=== PATIENT | male | born 1955 | race Two or more races ===

== ENCOUNTER → 2020-02-05 | Outpatient (CLI) | payer MEDICARE | END | disposition home or self-care (01) | LOC: LAB 09:16 | DX: I74.5 Embolism and thrombosis of iliac artery (principal) | CPT/HCPCS: 36415; 82565; 84520 ==

== ENCOUNTER → 2020-10-13 | Outpatient (CLI) | payer MEDICARE | END | disposition home or self-care (01) | LOC: Rad HDHVI 08:09 | PROVIDERS: ATTEND Internal Medicine | DX: I08.3 Combined rheumatic disorders of mitral, aortic and tricuspid valves (principal); E78.5 Hyperlipidemia, unspecified; R06.02 Shortness of breath | CPT/HCPCS: 93306 ==

== ENCOUNTER → 2020-11-12 | Outpatient (CLI) | payer MEDICARE ==
[~2020-11-12] VITALS: Ht 175.3 cm; Wt 90.7 kg
[~2020-11-12] MED LIST: ADENOSINE 76 MG in GIVE UN-DILUTED 0 ML IV ONE; ADENOSINE 90 MG/30 ML INJ IV ONE
== END | disposition home or self-care (01) ==
LOC: Rad HDHVI 08:21
PROVIDERS: ATTEND Internal Medicine
DX: I25.10 Atherosclerotic heart disease of native coronary artery without angina pectoris (principal); I10 Essential (primary) hypertension; E78.5 Hyperlipidemia, unspecified; Z95.1 Presence of aortocoronary bypass graft; Z82.49 Family history of ischemic heart disease and other diseases of the circulatory system
CPT/HCPCS: 78452; 93005; 96374; 96375; A9500; J0153

== ENCOUNTER 2020-11-20 10:52 | Emergency (ER) | payer MEDICARE ==
[~2020-11-20] VITALS: Ht 175.3 cm; Wt 86.2 kg
[2020-11-20 10:59] VITALS: BP 113/61
== END 2020-11-20 12:17 | disposition left against medical advice (07) ==
LOC: ER 10:52
DX: R06.02 Shortness of breath (principal); I11.0 Hypertensive heart disease with heart failure; I50.9 Heart failure, unspecified; E78.5 Hyperlipidemia, unspecified; F17.210 Nicotine dependence, cigarettes, uncomplicated; F12.10 Cannabis abuse, uncomplicated
CPT/HCPCS: 93005

== ENCOUNTER → 2020-12-05 | Outpatient (CLI) | payer MEDICARE, MEDICAID ==
[~2020-12-05] VITALS: Ht 175.3 cm; Wt 89.4 kg
[~2020-12-05] MED LIST changes: -ADENOSINE 76 MG in GIVE UN-DILUTED 0 ML IV ONE; -ADENOSINE 90 MG/30 ML INJ IV ONE; +AML5T PO; +ASPI-231 PO; +ATOR80TA PO; +CITA10TA70 PO; +CLOP75TA28 PO; +EZET10TA22 PO; +FINA5TAB4 PO; +HYDR-4798 PO; +LISI40TA11 PO; +METO25TA93 PO; +TAM04C PO
[2020-12-05 09:15] VITALS: BP 142/76
[2020-12-05 09:29] VITALS: BP 146/79
[2020-12-05 12:05] LABS: Basophils # (auto) 0 10 ^3/uL (0-0.2); Basophils % (auto) 0.7 % (0.0-2.0); Eosinophils # (auto) 0.1 10 ^3/uL (0-0.8); Eosinophils % (auto) 2.4 % (0.0-7.0); Hematocrit 30.9 % (41.0-53.0); Hemoglobin 10.1 g/dL (13.5-17.5); Lymphocytes # (auto) 0.9 10 ^3/uL (0.4-5.4); Lymphocytes % (auto) 19.6 % (10.0-50.0); Mean Corpuscular Hemoglobin 27.3 pg (28.0-32.0); Mean Corpuscular Hgb Conc. 32.6 g/dL (32.0-36.0); Mean Corpuscular Volume 83.9 fL (80.0-100.0); Monocytes # (auto) 0.6 10 ^3/uL (0-1.3); Monocytes % (auto) 11.7 % (0.0-12.0); Neutrophils # (auto) 3.1 10 ^3/uL (1.6-8.6); Neutrophils % (auto) 65.6 % (37.0-80.0); Nucleated Red Blood Cells % 0.1 %; Red Blood Cells 3.69 10^6/uL (4.5-5.90); White Blood Cell 4.8 10^3/uL (4.4-10.8)
[2020-12-05 12:11] LABS: Red Cell Distribution Width 23.4 % (11.8-14.3)
[2020-12-05 12:17] LABS: INR 0.98 (0.9-1.15); Partial Thromboplastin Time 27.1 sec (23.0-31.2)
[2020-12-05 12:18] LABS: Calcium 8.6 mg/dL (8.5-10.1); Potassium 4.2 mmol/L (3.5-5.1)
[2020-12-05 12:20] LABS: BUN/Creatinine Ratio 21.7
== END | disposition home or self-care (01) ==
LOC: Rad HDHVI 08:50
PROVIDERS: ATTEND Internal Medicine
DX: Z01.812 Encounter for preprocedural laboratory examination (principal); I70.0 Atherosclerosis of aorta; I73.9 Peripheral vascular disease, unspecified; I25.10 Atherosclerotic heart disease of native coronary artery without angina pectoris
CPT/HCPCS: 36415; 71046; 80048; 85025; 85610; 85730; G0463; 93005

== ENCOUNTER 2020-12-10 08:29 | Inpatient (IN) | payer MEDICARE, MEDICAID ==
[~2020-12-10] VITALS: Ht 175.3 cm; Wt 87.0 kg
[~2020-12-10 08:29] MED LIST changes: -ASPI-231 PO; +ASPI1TAB20 PO
[2020-12-10] MEDS ORDERED: HYDROmorphone HCL 2 MG/ML VL IV ONE (09:45)
[2020-12-10] MEDS ORDERED: ALPRAZolam 0.5 MG TAB PO ONE (09:45)
[2020-12-10] MEDS ORDERED: LIDOCAINE 2%HCL (LOCAL ANESTH.) INJ 20ML MDV ONE ×2 (12:08→13:04)
[2020-12-10] MEDS ORDERED: fentaNYL CITRATE 100 MCG/2 ML VL ONE (12:08)
[2020-12-10] MEDS ORDERED: MIDAZOLAM HCL 2MG/2ML 2ml VIAL (1mg/ml) ONE ×2 (12:08→12:43)
[2020-12-10] MEDS ORDERED: ANGIOMAX 250 MG VIAL IV ONE (12:08)
[2020-12-10] MEDS ORDERED: SODIUM CHL 0.9% 50 ML ONE (12:08)
[2020-12-10] MEDS ORDERED: NITROGLYCERIN 5MG/ML 10ML VIAL IV ONE (12:15)
[2020-12-10] MEDS ORDERED: VERAPAMIL 2.5MG/ML INJ 2ML VIAL IV ONE ×2 (12:15→13:28)
[2020-12-10] MEDS ORDERED: diphenhdrAMINE HCL 50 MG/1 ML VL ONE (12:42)
[2020-12-10] MEDS ORDERED: HEPARIN SODIUM (PORCINE) 5000 UNITS/ML 1ML VIAL ONE (13:05)
[2020-12-10] MEDS ORDERED: IOHEXOL 350 MG/ML 100ML IJ ONE (13:13)
[2020-12-10] MEDS ORDERED: HYDROmorphone HCL 2 MG/ML VL ONE (13:46)
[2020-12-10] MEDS ORDERED: CLOPIDOGREL BISULFATE 75 MG TAB ONE (14:16)
[2020-12-10] MEDS ORDERED: ASPirin 81 mg TAB ONE (14:16)
[2020-12-10] MEDS ORDERED: MORPHINE SULFATE INJECTION 2 MG/ML SYRG IV PRN (14:30)
[2020-12-10] MEDS ORDERED: ACETAMINOPHEN 500 MG TAB PO PRN (14:30)
[2020-12-10] MEDS ORDERED: NITROGLYCERIN 0.4 MG SL TAB SL PRN (14:30)
[2020-12-10] MEDS ORDERED: ONDANSETRON HCL 4 MG/2 ML VIAL IV PRN (14:30)
[2020-12-10] MEDS ORDERED: HYDROcodone-ACET 10/325MG TAB ONE (16:07)
[2020-12-10] MEDS: HYDROcodone-ACET 10/325MG TAB PO PRN ×2 (16:12→22:31)
[2020-12-10] MEDS ORDERED: HYDROcodone-ACET 10/325MG TAB PO SCH (18:00)
[2020-12-10] MEDS ORDERED: cloNIDine HCL 0.1 MG TAB PO PRN (18:30)
[2020-12-10 21:57] VITALS: BP 121/69
[2020-12-10] MEDS: ATORVASTATIN 20 MG TAB PO SCH (22:30)
[2020-12-10] MEDS: TAMSULOSIN HYDROCHLORIDE 0.4 MG CAP PO SCH (22:30)
[2020-12-11] MEDS ORDERED: TEMAZEPAM 15 MG CAP PO ONE (01:15)
[2020-12-11 05:00] VITALS: BP 143/75
[2020-12-11] MEDS: HYDROcodone-ACET 10/325MG TAB PO PRN ×3 (05:15→11:58)
[2020-12-11 09:00] VITALS: BP 130/74
[2020-12-11] MEDS: TAMSULOSIN HYDROCHLORIDE 0.4 MG CAP PO SCH ×2 (09:49→21:25)
[2020-12-11] MEDS: LISINOPRIL 20 MG TAB PO SCH (09:50)
[2020-12-11] MEDS: FINASTERIDE 5 MG TAB PO SCH (09:52)
[2020-12-11] MEDS: amLODIPine BESYLATE 5 MG TAB PO SCH (09:52)
[2020-12-11] MEDS: CITALOPRAM HYDROBR 20 MG TAB PO SCH (09:53)
[2020-12-11] MEDS: METOPROLOL SUCCINATE XL 50 MG TAB PO SCH (09:57)
[2020-12-11] MEDS ORDERED: METOPROLOL SUCCINATE PO SCH (10:00)
[2020-12-11] MEDS: CLOPIDOGREL BISULFATE 75 MG TAB PO SCH (10:28)
[2020-12-11] MEDS: ASPirin-EC 81 mg tab PO SCH (10:28)
[2020-12-11 13:00] VITALS: BP 127/78
[2020-12-11] MEDS ORDERED: OXYCODONE W/ ACETAMINOPHEN 5/325MG TABLET PO ONE (13:45)
[2020-12-11] MEDS ORDERED: TEMAZEPAM 15 MG CAP PO PRN (15:30)
[2020-12-11 17:00] VITALS: BP 91/63
[2020-12-11] MEDS: ATORVASTATIN 20 MG TAB PO SCH (21:42)
[2020-12-11 22:00] VITALS: BP 156/82
[2020-12-11] MEDS: OXYCODONE W/ ACETAMINOPHEN 5/325MG TABLET PO PRN (22:01)
[2020-12-12 05:00] VITALS: BP 135/80
[2020-12-12] MEDS: OXYCODONE W/ ACETAMINOPHEN 5/325MG TABLET PO PRN (06:00)
[2020-12-12 06:13] LABS: Basophils # (auto) 0.1 10 ^3/uL (0-0.2); Basophils % (auto) 0.9 % (0.0-2.0); Eosinophils # (auto) 0.2 10 ^3/uL (0-0.8); Eosinophils % (auto) 2.8 % (0.0-7.0); Hematocrit 28.4 % (41.0-53.0); Hemoglobin 9.5 g/dL (13.5-17.5); Lymphocytes # (auto) 0.9 10 ^3/uL (0.4-5.4); Lymphocytes % (auto) 14.8 % (10.0-50.0); Mean Corpuscular Hemoglobin 27.9 pg (28.0-32.0); Mean Corpuscular Hgb Conc. 33.4 g/dL (32.0-36.0); Mean Corpuscular Volume 83.4 fL (80.0-100.0); Monocytes # (auto) 0.8 10 ^3/uL (0-1.3); Monocytes % (auto) 13.6 % (0.0-12.0); Neutrophils # (auto) 4.2 10 ^3/uL (1.6-8.6); Neutrophils % (auto) 67.9 % (37.0-80.0); White Blood Cell 6.2 10^3/uL (4.4-10.8)
[2020-12-12 06:27] LABS: BUN/Creatinine Ratio 20.5; Calcium 8.3 mg/dL (8.5-10.1); INR 1.03 (0.9-1.15); Partial Thromboplastin Time 27.2 sec (23.0-31.2); Potassium 4.4 mmol/L (3.5-5.1); Red Cell Distribution Width 21.5 % (11.8-14.3)
[2020-12-12 09:00] VITALS: BP 121/47
[2020-12-12] MEDS: METOPROLOL SUCCINATE XL 50 MG TAB PO SCH (09:15)
[2020-12-12] MEDS: amLODIPine BESYLATE 5 MG TAB PO SCH (09:16)
[2020-12-12] MEDS: TAMSULOSIN HYDROCHLORIDE 0.4 MG CAP PO SCH (09:16)
[2020-12-12] MEDS: FINASTERIDE 5 MG TAB PO SCH (09:17)
[2020-12-12] MEDS: LISINOPRIL 20 MG TAB PO SCH (09:17)
[2020-12-12] MEDS: CITALOPRAM HYDROBR 20 MG TAB PO SCH (09:17)
[2020-12-12] MEDS: ASPirin-EC 81 mg tab PO SCH (09:18)
[2020-12-12] MEDS: CLOPIDOGREL BISULFATE 75 MG TAB PO SCH (09:18)
== END 2020-12-12 12:45 | disposition left against medical advice (07) | DRG 272 ==
LOC: CATH 08:29 → TELE 14:30 → TELE-WESTW 16:49
PROVIDERS: ADMIT Internal Medicine; ATTEND Internal Medicine Nephrology
PROC: B41G1ZZ Fluoroscopy of Left Lower Extremity Arteries using Low Osmolar Contrast (ICD-10-PCS; principal; 2020-12-10)
PROC: 04CK3ZZ Extirpation of Matter from Right Femoral Artery, Percutaneous Approach (ICD-10-PCS; 2020-12-10)
PROC: 047K3ZZ Dilation of Right Femoral Artery, Percutaneous Approach (ICD-10-PCS; 2020-12-10)
PROC: B41F1ZZ Fluoroscopy of Right Lower Extremity Arteries using Low Osmolar Contrast (ICD-10-PCS; 2020-12-10)
DX: I70.211 Atherosclerosis of native arteries of extremities with intermittent claudication, right leg (principal); I10 Essential (primary) hypertension; E78.5 Hyperlipidemia, unspecified; I25.10 Atherosclerotic heart disease of native coronary artery without angina pectoris; N40.0 Benign prostatic hyperplasia without lower urinary tract symptoms; D64.9 Anemia, unspecified; I70.203 Unspecified atherosclerosis of native arteries of extremities, bilateral legs; Z87.891 Personal history of nicotine dependence; Z95.1 Presence of aortocoronary bypass graft
CPT/HCPCS: 36415; 37225; 71045; 75716; 80048; 85025; 85610; 85730; 93005; 99152; C1724; G0378; J2250; J3490

== ENCOUNTER 2021-04-05 16:01 | Inpatient (IN) | payer MEDICARE, MEDICAID ==
[~2021-04-05] VITALS: Ht 177.8 cm; Wt 91.2 kg
[~2021-04-05 16:01] MED LIST changes: -EZET10TA22 PO
[2021-04-05 18:22] LABS: Basophils # (auto) 0.1 10 ^3/uL (0-0.2); Lymphocytes # (auto) 0.6 10 ^3/uL (0.4-5.4)
[2021-04-05 18:28] LABS: Basophils % (auto) 0.7 % (0.0-2.0); Eosinophils # (auto) 0.1 10 ^3/uL (0-0.8); Eosinophils % (auto) 1.8 % (0.0-7.0); Hematocrit 19.9 % (41.0-53.0); Lymphocytes % (auto) 7.3 % (10.0-50.0); Mean Corpuscular Hemoglobin 22.7 pg (28.0-32.0); Mean Corpuscular Hgb Conc. 32.6 g/dL (32.0-36.0); Mean Corpuscular Volume 69.5 fL (80.0-100.0); Monocytes % (auto) 11.9 % (0.0-12.0); Neutrophils # (auto) 6.4 10 ^3/uL (1.6-8.6); Neutrophils % (auto) 78.3 % (37.0-80.0); Red Blood Cells 2.86 10^6/uL (4.5-5.90); White Blood Cell 8.1 10^3/uL (4.4-10.8)
[2021-04-05 18:35] LABS: Albumin 2.9 g/dL (3.4-5.0); Calcium 7.6 mg/dL (8.5-10.1); Hemoglobin 6.5 g/dL (13.5-17.5)
[2021-04-05 18:41] LABS: BUN/Creatinine Ratio 17.4; Bilirubin, Total 0.2 mg/dL (0.2-1.0)
[2021-04-05 19:09] LABS: Urine Bacteria NONE SEEN /hpf (None Seen); Urine Blood Negative /uL (Negative); Urine Specific Gravity 1.014 (1.001-1.035); Urine WBC 1 /hpf (0 - 3)
[2021-04-05] MEDS ORDERED: ONDANSETRON HCL 4 MG/2 ML VIAL IV ONE (21:15)
[2021-04-05] MEDS ORDERED: fentaNYL CITRATE 100 MCG/2 ML VL IV ONE (21:15)
[2021-04-05] MEDS ORDERED: ACETAMINOPHEN 325 MG TAB PO PRN (21:30)
[2021-04-05] MEDS ORDERED: SODIUM CHL 3% 500 ML IV ONE (21:30)
[2021-04-05] MEDS ORDERED: FUROSEMIDE 20 MG/2 ML VIAL IV ONE (21:30)
[2021-04-05] MEDS ORDERED: DOCUSATE SOD 100 MG CAP PO PRN (21:30)
[2021-04-05] MEDS ORDERED: ALBUMIN 25% 100 ML IV ONE (21:45)
[2021-04-05] MEDS ORDERED: ASCORBIC ACID 500 MG TAB PO SCH (22:00)
[2021-04-05] MEDS: SODIUM CHLOR 0.9% PF (SALINE LOCK) 10ML VIAL/SYR IV SCH (22:04)
[2021-04-05] MEDS: ATORVASTATIN 20 MG TAB PO SCH (22:05)
[2021-04-05 22:25] LABS: INR 1.19 (0.9-1.15)
[2021-04-05 22:44] VITALS: BP 114/45
[2021-04-05 23:00] VITALS: BP 130/62
[2021-04-05] MEDS ORDERED: NITROGLYCERIN 0.4 MG SL TAB SL PRN (23:15)
[2021-04-05] MEDS ORDERED: MORPHINE SULFATE INJECTION 2 MG/ML SYRG IV PRN (23:15)
[2021-04-06] VITALS (7 sets, daily range): BP systolic 99–125; BP diastolic 46–69
[2021-04-06] MEDS: MORPHINE SULFATE 4 MG/ML SYR/VIAL IV PRN ×4 (00:31→23:01)
[2021-04-06] MEDS: ONDANSETRON HCL 4 MG/2 ML VIAL IV PRN ×2 (03:53→23:02)
[2021-04-06] MEDS: SODIUM CHLOR 0.9% PF (SALINE LOCK) 10ML VIAL/SYR IV SCH ×3 (05:34→22:04)
[2021-04-06] MEDS: HYDROcodone-ACET 5/325MG TAB PO PRN (07:47)
[2021-04-06 07:49] LABS: Basophils # (auto) 0.1 10 ^3/uL (0-0.2); Basophils % (auto) 0.7 % (0.0-2.0); Eosinophils # (auto) 0.3 10 ^3/uL (0-0.8); Eosinophils % (auto) 3.3 % (0.0-7.0); Hematocrit 25.2 % (41.0-53.0); Hemoglobin 8.2 g/dL (13.5-17.5); Lymphocytes # (auto) 0.5 10 ^3/uL (0.4-5.4); Lymphocytes % (auto) 5.7 % (10.0-50.0); Mean Corpuscular Hemoglobin 23.5 pg (28.0-32.0); Mean Corpuscular Hgb Conc. 32.5 g/dL (32.0-36.0); Monocytes # (auto) 1.3 10 ^3/uL (0-1.3); Monocytes % (auto) 14.7 % (0.0-12.0); Neutrophils # (auto) 6.9 10 ^3/uL (1.6-8.6); Neutrophils % (auto) 75.6 % (37.0-80.0); Nucleated Red Blood Cells % 0.1 %; Red Blood Cells 3.48 10^6/uL (4.5-5.90); Red Cell Distribution Width 19.9 % (11.8-14.3); White Blood Cell 9.1 10^3/uL (4.4-10.8)
[2021-04-06 07:50] LABS: Mean Corpuscular Volume 72.4 fL (80.0-100.0)
[2021-04-06 08:07] LABS: Albumin 3.2 g/dL (3.4-5.0); Calcium 7.9 mg/dL (8.5-10.1); Potassium 3.8 mmol/L (3.5-5.1)
[2021-04-06 08:14] LABS: BUN/Creatinine Ratio 19.5; Bilirubin, Total 0.8 mg/dL (0.2-1.0); Total Protein 6.4 g/dL (6.4-8.2)
[2021-04-06] MEDS ORDERED: FAMOTIDINE (10MG/ML) 2ML VL IV SCH (10:00)
[2021-04-06] MEDS ORDERED: ZINC SULFATE 220mg CAP or TAB PO SCH (10:00)
[2021-04-06] MEDS ORDERED: FUROSEMIDE 40 MG/4 ML VIAL IV SCH (10:00)
[2021-04-06] MEDS: MULTIPLE VITAMIN TAB PO SCH (10:23)
[2021-04-06] MEDS: ASPirin 81 mg TAB PO SCH (10:23)
[2021-04-06 12:14] LABS: % Iron Saturation 7.4 % (20-55)
[2021-04-06] MEDS: PANTOPRAZOLE 40 MG TAB PO SCH ×2 (15:15→22:04)
[2021-04-06] MEDS: SUCRALFATE 1 GM/10 ML ORAL SUSP PO SCH ×2 (17:03→22:00)
[2021-04-06] MEDS: TAMSULOSIN HYDROCHLORIDE 0.4 MG CAP PO SCH (17:04)
[2021-04-06] MEDS: ATORVASTATIN 20 MG TAB PO SCH (22:04)
[2021-04-07] MEDS: MORPHINE SULFATE 4 MG/ML SYR/VIAL IV PRN ×2 (05:20→15:41)
[2021-04-07] MEDS: ONDANSETRON HCL 4 MG/2 ML VIAL IV PRN (05:21)
[2021-04-07] MEDS: SODIUM CHLOR 0.9% PF (SALINE LOCK) 10ML VIAL/SYR IV SCH ×3 (06:05→21:51)
[2021-04-07] MEDS: SUCRALFATE 1 GM/10 ML ORAL SUSP PO SCH ×4 (06:05→21:51)
[2021-04-07 07:05] LABS: Basophils # (auto) 0.1 10 ^3/uL (0-0.2); Eosinophils # (auto) 0.2 10 ^3/uL (0-0.8); Hemoglobin 7.7 g/dL (13.5-17.5); Lymphocytes # (auto) 0.7 10 ^3/uL (0.4-5.4); Mean Corpuscular Hgb Conc. 32.2 g/dL (32.0-36.0); Monocytes # (auto) 1.2 10 ^3/uL (0-1.3); Nucleated Red Blood Cells % 0.1 %
[2021-04-07 07:09] LABS: Basophils % (auto) 0.8 % (0.0-2.0); Eosinophils % (auto) 2.8 % (0.0-7.0); Hematocrit 23.7 % (41.0-53.0); Lymphocytes % (auto) 8.3 % (10.0-50.0); Monocytes % (auto) 14.2 % (0.0-12.0); Neutrophils # (auto) 6.4 10 ^3/uL (1.6-8.6); Neutrophils % (auto) 73.9 % (37.0-80.0); Red Blood Cells 3.24 10^6/uL (4.5-5.90); Red Cell Distribution Width 20.1 % (11.8-14.3); White Blood Cell 8.7 10^3/uL (4.4-10.8)
[2021-04-07 07:10] LABS: BUN/Creatinine Ratio 16.5; Calcium 8.2 mg/dL (8.5-10.1); Potassium 4.1 mmol/L (3.5-5.1)
[2021-04-07 07:20] LABS: Mean Corpuscular Hemoglobin 23.6 pg (28.0-32.0); Mean Corpuscular Volume 73.2 fL (80.0-100.0)
[2021-04-07 09:04] VITALS: BP 132/75
[2021-04-07] MEDS ORDERED: FAMOTIDINE 20 MG TAB PO SCH (10:00)
[2021-04-07] MEDS: FUROSEMIDE 20 MG/2 ML VIAL IV SCH (10:33)
[2021-04-07] MEDS: PANTOPRAZOLE 40 MG TAB PO SCH ×2 (10:33→21:51)
[2021-04-07] MEDS: MULTIPLE VITAMIN TAB PO SCH (10:33)
[2021-04-07] MEDS: ASPirin 81 mg TAB PO SCH (10:33)
[2021-04-07 12:58] VITALS: BP 108/58
[2021-04-07 17:28] VITALS: BP 127/65
[2021-04-07] MEDS: TAMSULOSIN HYDROCHLORIDE 0.4 MG CAP PO SCH (18:18)
[2021-04-07] MEDS: HYDROcodone-ACET 5/325MG TAB PO PRN ×2 (18:19→21:52)
[2021-04-07] MEDS: cefTRIAXone 1GM/50ML D5W 50 ML IV SCH (18:44)
[2021-04-07] MEDS: ATORVASTATIN 20 MG TAB PO SCH (21:51)
[2021-04-07 22:00] VITALS: BP 112/52
[2021-04-08] VITALS (10 sets, daily range): BP systolic 91–130; BP diastolic 50–75
[2021-04-08] MEDS: SODIUM CHLOR 0.9% PF (SALINE LOCK) 10ML VIAL/SYR IV SCH ×3 (06:00→22:15)
[2021-04-08] MEDS: SUCRALFATE 1 GM/10 ML ORAL SUSP PO SCH ×4 (07:00→22:15)
[2021-04-08] MEDS ORDERED: diphenhdrAMINE HCL 50 MG/1 ML VL ONE (08:01)
[2021-04-08] MEDS ORDERED: LIDOCAINE VISCOUS 2% 15ML UD ONE (08:01)
[2021-04-08] MEDS: fentaNYL CITRATE 100 MCG/2 ML VL ONE ×2 (09:20→09:23)
[2021-04-08] MEDS: MIDAZOLAM HCL 5 MG/ML-1ML VIAL ONE ×2 (09:20→09:23)
[2021-04-08] MEDS: cefTRIAXone 1GM/50ML D5W 50 ML IV SCH (11:27)
[2021-04-08] MEDS: ASPirin 81 mg TAB PO SCH (11:28)
[2021-04-08] MEDS: PANTOPRAZOLE 40 MG TAB PO SCH ×2 (11:28→22:15)
[2021-04-08] MEDS: MULTIPLE VITAMIN TAB PO SCH (11:28)
[2021-04-08] MEDS: FUROSEMIDE 20 MG/2 ML VIAL IV SCH (11:28)
[2021-04-08] MEDS: HYDROcodone-ACET 5/325MG TAB PO PRN (14:58)
[2021-04-08 15:35] LABS: Eosinophils # (auto) 0.2 10 ^3/uL (0-0.8); Neutrophils # (auto) 6.4 10 ^3/uL (1.6-8.6); White Blood Cell 8.6 10^3/uL (4.4-10.8)
[2021-04-08 15:36] LABS: Basophils # (auto) 0.1 10 ^3/uL (0-0.2); Basophils % (auto) 0.7 % (0.0-2.0); Hematocrit 21.9 % (41.0-53.0); Lymphocytes # (auto) 0.5 10 ^3/uL (0.4-5.4); Lymphocytes % (auto) 6.3 % (10.0-50.0); Mean Corpuscular Hemoglobin 22.8 pg (28.0-32.0); Mean Corpuscular Hgb Conc. 31.1 g/dL (32.0-36.0); Mean Corpuscular Volume 73.2 fL (80.0-100.0); Monocytes # (auto) 1.5 10 ^3/uL (0-1.3); Monocytes % (auto) 17.3 % (0.0-12.0); Neutrophils % (auto) 73.7 % (37.0-80.0); Red Blood Cells 2.99 10^6/uL (4.5-5.90)
[2021-04-08 15:42] LABS: Red Cell Distribution Width 20.5 % (11.8-14.3)
[2021-04-08 15:44] LABS: Hemoglobin 6.8 g/dL (13.5-17.5)
[2021-04-08] MEDS: TAMSULOSIN HYDROCHLORIDE 0.4 MG CAP PO SCH (18:00)
[2021-04-08] MEDS: OXYCODONE W/ ACETAMINOPHEN 5/325MG TABLET PO PRN (20:15)
[2021-04-08] MEDS: ATORVASTATIN 20 MG TAB PO SCH (22:15)
[2021-04-09] VITALS (7 sets, daily range): BP systolic 106–141; BP diastolic 59–78
[2021-04-09] MEDS: OXYCODONE W/ ACETAMINOPHEN 5/325MG TABLET PO PRN ×5 (03:03→22:15)
[2021-04-09 04:23] LABS: Basophils # (auto) 0.1 10 ^3/uL (0-0.2); Eosinophils # (auto) 0.3 10 ^3/uL (0-0.8); Hemoglobin 8.3 g/dL (13.5-17.5); Monocytes # (auto) 1.3 10 ^3/uL (0-1.3); Nucleated Red Blood Cells % 0.1 %
[2021-04-09 04:26] LABS: Basophils % (auto) 0.9 % (0.0-2.0); Eosinophils % (auto) 3.3 % (0.0-7.0); Hematocrit 26.2 % (41.0-53.0); Lymphocytes # (auto) 0.9 10 ^3/uL (0.4-5.4); Lymphocytes % (auto) 9.8 % (10.0-50.0); Mean Corpuscular Hgb Conc. 31.7 g/dL (32.0-36.0); Mean Corpuscular Volume 75.8 fL (80.0-100.0); Monocytes % (auto) 14.3 % (0.0-12.0); Neutrophils # (auto) 6.4 10 ^3/uL (1.6-8.6); Neutrophils % (auto) 71.7 % (37.0-80.0); Red Blood Cells 3.46 10^6/uL (4.5-5.90); White Blood Cell 8.9 10^3/uL (4.4-10.8)
[2021-04-09 04:29] LABS: Red Cell Distribution Width 20.9 % (11.8-14.3)
[2021-04-09] MEDS: SUCRALFATE 1 GM/10 ML ORAL SUSP PO SCH ×4 (06:20→22:03)
[2021-04-09] MEDS: SODIUM CHLOR 0.9% PF (SALINE LOCK) 10ML VIAL/SYR IV SCH ×3 (06:20→22:02)
[2021-04-09] MEDS: cefTRIAXone 1GM/50ML D5W 50 ML IV SCH (09:10)
[2021-04-09] MEDS: PANTOPRAZOLE 40 MG TAB PO SCH ×2 (09:18→22:04)
[2021-04-09] MEDS: FERROUS SULFATE 325mg EC TAB PO SCH (09:18)
[2021-04-09] MEDS: FUROSEMIDE 20 MG/2 ML VIAL IV SCH (09:18)
[2021-04-09] MEDS: ASPirin 81 mg TAB PO SCH (09:18)
[2021-04-09] MEDS: MULTIPLE VITAMIN TAB PO SCH (09:19)
[2021-04-09 09:37] LABS: Albumin 3.2 g/dL (3.4-5.0); Calcium 8.2 mg/dL (8.5-10.1); Potassium 4.4 mmol/L (3.5-5.1)
[2021-04-09 09:44] LABS: BUN/Creatinine Ratio 19.6; Basophils # (auto) 0.1 10 ^3/uL (0-0.2); Bilirubin, Total 0.6 mg/dL (0.2-1.0); Monocytes # (auto) 1.2 10 ^3/uL (0-1.3); Total Protein 6.5 g/dL (6.4-8.2); White Blood Cell 9.6 10^3/uL (4.4-10.8)
[2021-04-09 09:50] LABS: Basophils % (auto) 0.9 % (0.0-2.0); Eosinophils # (auto) 0.4 10 ^3/uL (0-0.8); Eosinophils % (auto) 3.8 % (0.0-7.0); Hematocrit 28.3 % (41.0-53.0); Hemoglobin 9.1 g/dL (13.5-17.5); Lymphocytes # (auto) 0.7 10 ^3/uL (0.4-5.4); Lymphocytes % (auto) 7.8 % (10.0-50.0); Mean Corpuscular Hemoglobin 24.4 pg (28.0-32.0); Mean Corpuscular Volume 76.1 fL (80.0-100.0); Monocytes % (auto) 12.8 % (0.0-12.0); Neutrophils # (auto) 7.2 10 ^3/uL (1.6-8.6); Neutrophils % (auto) 74.7 % (37.0-80.0); Red Blood Cells 3.72 10^6/uL (4.5-5.90)
[2021-04-09] MEDS: CITALOPRAM HYDROBR 20 MG TAB PO SCH (11:18)
[2021-04-09] MEDS: TAMSULOSIN HYDROCHLORIDE 0.4 MG CAP PO SCH (17:41)
[2021-04-09] MEDS ORDERED: IOHEXOL 350 MG/ML 100ML IJ ONE (18:25)
[2021-04-09] MEDS: ATORVASTATIN 20 MG TAB PO SCH (22:03)
[2021-04-10 05:00] VITALS: BP 148/75
[2021-04-10] MEDS: SODIUM CHLOR 0.9% PF (SALINE LOCK) 10ML VIAL/SYR IV SCH ×3 (05:12→21:51)
[2021-04-10] MEDS: OXYCODONE W/ ACETAMINOPHEN 5/325MG TABLET PO PRN ×3 (05:12→18:32)
[2021-04-10] MEDS: SUCRALFATE 1 GM/10 ML ORAL SUSP PO SCH ×4 (05:12→21:51)
[2021-04-10] MEDS ORDERED: IOHEXOL 350 MG/ML 100ML IJ ONE (05:21)
[2021-04-10 05:23] LABS: Basophils # (auto) 0.1 10 ^3/uL (0-0.2); Eosinophils # (auto) 0.4 10 ^3/uL (0-0.8)
[2021-04-10 05:26] LABS: Basophils % (auto) 1.1 % (0.0-2.0); Hematocrit 25.4 % (41.0-53.0); Hemoglobin 8.2 g/dL (13.5-17.5); Lymphocytes # (auto) 0.7 10 ^3/uL (0.4-5.4); Lymphocytes % (auto) 9.9 % (10.0-50.0); Mean Corpuscular Hemoglobin 24.6 pg (28.0-32.0); Mean Corpuscular Hgb Conc. 32.3 g/dL (32.0-36.0); Mean Corpuscular Volume 76.2 fL (80.0-100.0); Monocytes % (auto) 14.2 % (0.0-12.0); Neutrophils % (auto) 69.8 % (37.0-80.0); Red Blood Cells 3.33 10^6/uL (4.5-5.90); White Blood Cell 7.1 10^3/uL (4.4-10.8)
[2021-04-10 05:42] LABS: Albumin 2.8 g/dL (3.4-5.0); BUN/Creatinine Ratio 19.7; Calcium 7.4 mg/dL (8.5-10.1); Potassium 3.9 mmol/L (3.5-5.1)
[2021-04-10 05:48] LABS: Red Cell Distribution Width 21.3 % (11.8-14.3)
[2021-04-10 05:55] LABS: Bilirubin, Total 0.4 mg/dL (0.2-1.0); Total Protein 5.9 g/dL (6.4-8.2)
[2021-04-10 08:34] VITALS: BP 140/73
[2021-04-10] MEDS: cefTRIAXone 1GM/50ML D5W 50 ML IV SCH (08:52)
[2021-04-10] MEDS: ASPirin 81 mg TAB PO SCH (08:53)
[2021-04-10] MEDS: FERROUS SULFATE 325mg EC TAB PO SCH (08:54)
[2021-04-10] MEDS: CITALOPRAM HYDROBR 20 MG TAB PO SCH (08:55)
[2021-04-10] MEDS: MULTIPLE VITAMIN TAB PO SCH (08:55)
[2021-04-10] MEDS: PANTOPRAZOLE 40 MG TAB PO SCH ×2 (08:55→21:51)
[2021-04-10] MEDS: FUROSEMIDE 20 MG/2 ML VIAL IV SCH (09:16)
[2021-04-10] MEDS ORDERED: FUROSEMIDE 20 MG/2 ML VIAL IV SCH (12:00)
[2021-04-10] MEDS: SODIUM FERR GLUC 62.5MG/5ML 125 MG in SODIUM CHL 0.9% 100 ML IV SCH (12:21)
[2021-04-10] MEDS: LACTULOSE 20Gm/30ML SOLN PO PRN (14:14)
[2021-04-10 14:19] VITALS: BP 146/74
[2021-04-10 17:00] VITALS: BP 151/85
[2021-04-10] MEDS ORDERED: hydrALAZINE HCL 20 MG/ML VL IV PRN (17:00)
[2021-04-10] MEDS: FUROSEMIDE 40 MG/4 ML VIAL IV SCH (17:21)
[2021-04-10] MEDS: TAMSULOSIN HYDROCHLORIDE 0.4 MG CAP PO SCH (18:32)
[2021-04-10] MEDS: ATORVASTATIN 20 MG TAB PO SCH (21:51)
[2021-04-10 22:46] VITALS: BP 150/91
[2021-04-11] MEDS: OXYCODONE W/ ACETAMINOPHEN 5/325MG TABLET PO PRN ×3 (02:34→17:47)
[2021-04-11] MEDS: LACTULOSE 20Gm/30ML SOLN PO PRN (03:51)
[2021-04-11 05:12] VITALS: BP 143/76
[2021-04-11] MEDS: SODIUM CHLOR 0.9% PF (SALINE LOCK) 10ML VIAL/SYR IV SCH ×3 (05:48→21:24)
[2021-04-11] MEDS: FUROSEMIDE 40 MG/4 ML VIAL IV SCH ×2 (05:48→18:00)
[2021-04-11 06:00] LABS: Basophils # (auto) 0.1 10 ^3/uL (0-0.2); Eosinophils # (auto) 0.4 10 ^3/uL (0-0.8); Lymphocytes # (auto) 0.8 10 ^3/uL (0.4-5.4)
[2021-04-11 06:03] LABS: Basophils % (auto) 1.3 % (0.0-2.0); Hematocrit 28.6 % (41.0-53.0); Hemoglobin 9.3 g/dL (13.5-17.5); Lymphocytes % (auto) 10.9 % (10.0-50.0); Mean Corpuscular Hemoglobin 24.5 pg (28.0-32.0); Mean Corpuscular Hgb Conc. 32.6 g/dL (32.0-36.0); Mean Corpuscular Volume 75.2 fL (80.0-100.0); Monocytes % (auto) 13.2 % (0.0-12.0); Neutrophils # (auto) 5.1 10 ^3/uL (1.6-8.6); Neutrophils % (auto) 68.6 % (37.0-80.0); White Blood Cell 7.4 10^3/uL (4.4-10.8)
[2021-04-11 06:05] LABS: Red Cell Distribution Width 21.5 % (11.8-14.3)
[2021-04-11 06:24] LABS: Albumin 2.9 g/dL (3.4-5.0); Calcium 8.4 mg/dL (8.5-10.1); Potassium 3.7 mmol/L (3.5-5.1)
[2021-04-11 06:29] LABS: BUN/Creatinine Ratio 18.5; Bilirubin, Total 0.3 mg/dL (0.2-1.0); Total Protein 6.4 g/dL (6.4-8.2)
[2021-04-11] MEDS: SUCRALFATE 1 GM/10 ML ORAL SUSP PO SCH ×4 (06:31→21:23)
[2021-04-11 09:00] VITALS: BP 151/92
[2021-04-11] MEDS: MULTIPLE VITAMIN TAB PO SCH (09:45)
[2021-04-11] MEDS: ASPirin 81 mg TAB PO SCH (09:45)
[2021-04-11] MEDS: CITALOPRAM HYDROBR 20 MG TAB PO SCH (09:46)
[2021-04-11] MEDS: PANTOPRAZOLE 40 MG TAB PO SCH ×2 (09:47→21:23)
[2021-04-11] MEDS: FERROUS SULFATE 325mg EC TAB PO SCH (09:47)
[2021-04-11] MEDS: cefTRIAXone 1GM/50ML D5W 50 ML IV SCH (09:49)
[2021-04-11] MEDS: LISINOPRIL 20 MG TAB PO SCH (11:49)
[2021-04-11] MEDS: METOPROLOL SUCCINATE XL 50 MG TAB PO SCH (11:49)
[2021-04-11] MEDS: amLODIPine BESYLATE 5 MG TAB PO SCH (11:50)
[2021-04-11] MEDS: SODIUM FERR GLUC 62.5MG/5ML 125 MG in SODIUM CHL 0.9% 100 ML IV SCH (12:22)
[2021-04-11 13:00] VITALS: BP 149/81
[2021-04-11 16:35] VITALS: BP 137/72
[2021-04-11] MEDS: TAMSULOSIN HYDROCHLORIDE 0.4 MG CAP PO SCH (17:55)
[2021-04-11] MEDS: ATORVASTATIN 20 MG TAB PO SCH (21:23)
[2021-04-11 22:00] VITALS: BP 129/84
[2021-04-12] MEDS: OXYCODONE W/ ACETAMINOPHEN 5/325MG TABLET PO PRN ×2 (01:38→08:48)
[2021-04-12] MEDS: LACTULOSE 20Gm/30ML SOLN PO PRN (01:43)
[2021-04-12 05:06] VITALS: BP 148/85
[2021-04-12] MEDS: SODIUM CHLOR 0.9% PF (SALINE LOCK) 10ML VIAL/SYR IV SCH (06:24)
[2021-04-12] MEDS: SUCRALFATE 1 GM/10 ML ORAL SUSP PO SCH ×2 (06:24→11:43)
[2021-04-12] MEDS: FUROSEMIDE 40 MG/4 ML VIAL IV SCH (06:24)
[2021-04-12 08:25] LABS: Basophils # (auto) 0.1 10 ^3/uL (0-0.2); Eosinophils # (auto) 0.5 10 ^3/uL (0-0.8); Eosinophils % (auto) 5.1 % (0.0-7.0)
[2021-04-12 08:26] LABS: Basophils % (auto) 0.6 % (0.0-2.0); Hematocrit 34.2 % (41.0-53.0); Hemoglobin 10.9 g/dL (13.5-17.5); Lymphocytes # (auto) 0.9 10 ^3/uL (0.4-5.4); Lymphocytes % (auto) 9.9 % (10.0-50.0); Mean Corpuscular Hemoglobin 23.9 pg (28.0-32.0); Mean Corpuscular Hgb Conc. 31.9 g/dL (32.0-36.0); Monocytes # (auto) 1.1 10 ^3/uL (0-1.3); Monocytes % (auto) 12.4 % (0.0-12.0); Neutrophils # (auto) 6.5 10 ^3/uL (1.6-8.6); Red Blood Cells 4.57 10^6/uL (4.5-5.90)
[2021-04-12 08:28] LABS: Mean Corpuscular Volume 74.9 fL (80.0-100.0)
[2021-04-12 08:29] LABS: Red Cell Distribution Width 21.9 % (11.8-14.3)
[2021-04-12] MEDS: MULTIPLE VITAMIN TAB PO SCH (08:44)
[2021-04-12] MEDS: FERROUS SULFATE 325mg EC TAB PO SCH (08:44)
[2021-04-12] MEDS: ASPirin 81 mg TAB PO SCH (08:44)
[2021-04-12] MEDS: amLODIPine BESYLATE 5 MG TAB PO SCH (08:45)
[2021-04-12] MEDS: PANTOPRAZOLE 40 MG TAB PO SCH (08:45)
[2021-04-12] MEDS: LISINOPRIL 20 MG TAB PO SCH (08:46)
[2021-04-12] MEDS: CITALOPRAM HYDROBR 20 MG TAB PO SCH (08:47)
[2021-04-12] MEDS: METOPROLOL SUCCINATE XL 50 MG TAB PO SCH (08:47)
[2021-04-12 08:48] LABS: Albumin 3.4 g/dL (3.4-5.0); Calcium 8.7 mg/dL (8.5-10.1); Potassium 3.9 mmol/L (3.5-5.1)
[2021-04-12] MEDS: cefTRIAXone 1GM/50ML D5W 50 ML IV SCH (08:49)
[2021-04-12 08:51] LABS: BUN/Creatinine Ratio 22.6; Bilirubin, Total 0.4 mg/dL (0.2-1.0); Total Protein 7.4 g/dL (6.4-8.2)
[2021-04-12 09:00] VITALS: BP 143/77
[2021-04-12] MEDS: SODIUM FERR GLUC 62.5MG/5ML 125 MG in SODIUM CHL 0.9% 100 ML IV SCH (11:43)
[2021-04-12 13:00] VITALS: BP 136/80
[2021-04-12] MEDS ORDERED: FER325T PO (13:41)
== END 2021-04-12 15:30 | disposition home or self-care (01) | DRG 291 ==
LOC: ER 16:01 → EDBD 16:01 → TELE 23:08 → TELE-CENTR 23:53
PROVIDERS: ADMIT Nurse Practitioner Family; ATTEND Internal Medicine
PROC: 30233N1 Transfusion of Nonautologous Red Blood Cells into Peripheral Vein, Percutaneous Approach (ICD-10-PCS; principal; 2021-04-05)
PROC: 0DB98ZX Excision of Duodenum, Via Natural or Artificial Opening Endoscopic, Diagnostic (ICD-10-PCS; 2021-04-08)
PROC: 0DB68ZX Excision of Stomach, Via Natural or Artificial Opening Endoscopic, Diagnostic (ICD-10-PCS; 2021-04-08)
PROC: 0DB38ZX Excision of Lower Esophagus, Via Natural or Artificial Opening Endoscopic, Diagnostic (ICD-10-PCS; 2021-04-08)
DX: I11.0 Hypertensive heart disease with heart failure (principal); J96.01 Acute respiratory failure with hypoxia; J18.9 Pneumonia, unspecified organism; I50.43 Acute on chronic combined systolic (congestive) and diastolic (congestive) heart failure; E87.1 Hypo-osmolality and hyponatremia; N17.9 Acute kidney failure, unspecified; J98.11 Atelectasis; E88.09 Other disorders of plasma-protein metabolism, not elsewhere classified; D50.9 Iron deficiency anemia, unspecified; E78.5 Hyperlipidemia, unspecified; F12.90 Cannabis use, unspecified, uncomplicated; F17.210 Nicotine dependence, cigarettes, uncomplicated; F41.9 Anxiety disorder, unspecified; I25.10 Atherosclerotic heart disease of native coronary artery without angina pectoris; K20.90 Esophagitis, unspecified without bleeding; K29.70 Gastritis, unspecified, without bleeding; Z20.822 Contact with and (suspected) exposure to COVID-19; I73.9 Peripheral vascular disease, unspecified; R42 Dizziness and giddiness; R55 Syncope and collapse; Z79.899 Other long term (current) drug therapy; Z98.62 Peripheral vascular angioplasty status; Z80.0 Family history of malignant neoplasm of digestive organs; Z80.1 Family history of malignant neoplasm of trachea, bronchus and lung; Z80.42 Family history of malignant neoplasm of prostate; Z82.49 Family history of ischemic heart disease and other diseases of the circulatory system; Z95.1 Presence of aortocoronary bypass graft
CPT/HCPCS: 36415; 43239; 71045; 71275; 78278; 80048; 80053; 81001; 82270; 82784; 83010; 83516; 83540; 83550; 83615; 83880; 84484; 85025; 85045; 85379; 85610; 86255; 86850; 86880; 86900; 86901; 86920; 87426; 93005; 93306; 93886; 96365; 96375; A9560; G0378; J0696; J2250; J2405; J3490; P9047

== ENCOUNTER 2021-11-02 10:17 | Inpatient (IN) | payer MEDICARE, MEDICAID ==
[~2021-11-02] VITALS: Ht 177.8 cm; Wt 96.3 kg
[~2021-11-02 10:17] MED LIST changes: +FER325T PO
[2021-11-02] MEDS ORDERED: methylPREDNISolone SOD SUCC 125 MG/2 ML VL IV ONE (11:15)
[2021-11-02] MEDS ORDERED: cefTRIAXone 1GM/50ML D5W 50 ML IV ONE (11:15)
[2021-11-02 11:55] LABS: Basophils # (auto) 0 10 ^3/uL (0-0.2); Basophils % (auto) 0.6 % (0.0-2.0); Eosinophils # (auto) 0.3 10 ^3/uL (0-0.8); Eosinophils % (auto) 3.1 % (0.0-7.0); Hematocrit 29.6 % (41.0-53.0); Lymphocytes # (auto) 0.7 10 ^3/uL (0.4-5.4); Mean Corpuscular Hemoglobin 30.4 pg (28.0-32.0); Mean Corpuscular Hgb Conc. 33.7 g/dL (32.0-36.0); Mean Corpuscular Volume 90.2 fL (80.0-100.0); Monocytes # (auto) 0.8 10 ^3/uL (0-1.3); Neutrophils # (auto) 6.4 10 ^3/uL (1.6-8.6); Neutrophils % (auto) 78.3 % (37.0-80.0); Red Blood Cells 3.28 10^6/uL (4.5-5.90); Red Cell Distribution Width 13.9 % (11.8-14.3); White Blood Cell 8.2 10^3/uL (4.4-10.8)
[2021-11-02 11:56] LABS: Urine Bacteria NONE SEEN /hpf (None Seen); Urine Blood Negative /uL (Negative); Urine Specific Gravity 1.012 (1.001-1.035); Urine WBC <1 /hpf (0 - 3)
[2021-11-02 12:52] LABS: Potassium 4.7 mmol/L (3.5-5.1)
[2021-11-02 12:57] LABS: Albumin 3.4 g/dL (3.4-5.0); Calcium 8.8 mg/dL (8.5-10.1); Magnesium 1.8 mg/dL (1.6-2.6)
[2021-11-02 12:59] LABS: Bilirubin, Total 0.5 mg/dL (0.2-1.0); Total Protein 7.3 g/dL (6.4-8.2)
[2021-11-02] MEDS ORDERED: IOHEXOL 350 MG/ML 100ML IJ ONE (13:25)
[2021-11-02 13:31] LABS: CRP High Sensitivity 8.09 mg/dL (< 0.3)
[2021-11-02] MEDS ORDERED: HYDROmorphone HCL 2 MG/ML VL/or syr IV ONE (14:00)
[2021-11-02] MEDS ORDERED: ONDANSETRON HCL 4 MG/2 ML VIAL IV ONE (14:00)
[2021-11-02] MEDS ORDERED: NITROGLYCERIN 0.4 MG SL TAB SL PRN (17:15)
[2021-11-02] MEDS ORDERED: AZITHROMYCIN 500MG/ 250ML 250 ML IV ONE (17:15)
[2021-11-02] MEDS ORDERED: IPRATROPIUM BROM 0.5 MG/2.5ML INH SOL NEB PRN (17:15)
[2021-11-02] MEDS ORDERED: ALBUTEROL SULF 2.5 MG/0.5ML(0.5%) NEB SOLN NEB PRN (17:15)
[2021-11-02] MEDS ORDERED: FUROSEMIDE 40 MG/4 ML VIAL IV ONE (17:15)
[2021-11-02] MEDS: FUROSEMIDE 20 MG/2 ML VIAL IV SCH (17:40)
[2021-11-02] MEDS: IPRATROPIUM BROM 0.5 MG/2.5ML INH SOL NEB SCH (17:45)
[2021-11-02] MEDS: ALBUTEROL SULF 2.5 MG/0.5ML(0.5%) NEB SOLN NEB SCH (17:45)
[2021-11-02 17:47] LABS: Cholesterol 84 mg/dL (< 200)
[2021-11-02 17:50] LABS: HDL Cholesterol 44 mg/dL (40-59); LDL Cholesterol 33 mg/dL (< 100); Triglycerides 118 mg/dL (< 150)
[2021-11-02 18:54] VITALS: BP 122/61
[2021-11-02] MEDS ORDERED: ALPRAZolam 0.5 MG TAB PO ONE (19:00)
[2021-11-03 04:46] VITALS: BP 130/67
[2021-11-03] MEDS ORDERED: OXYC-963 (05:10)
[2021-11-03] MEDS ORDERED: PERCOT PO (05:10)
[2021-11-03] MEDS: FUROSEMIDE 20 MG/2 ML VIAL IV SCH (05:35)
[2021-11-03] MEDS: ALBUTEROL SULF 2.5 MG/0.5ML(0.5%) NEB SOLN NEB SCH ×3 (05:39→18:05)
[2021-11-03] MEDS: IPRATROPIUM BROM 0.5 MG/2.5ML INH SOL NEB SCH ×3 (05:39→18:05)
[2021-11-03 06:15] LABS: Basophils # (auto) 0 10 ^3/uL (0-0.2); Basophils % (auto) 0.3 % (0.0-2.0); Eosinophils # (auto) 0 10 ^3/uL (0-0.8); Hematocrit 28.2 % (41.0-53.0); Hemoglobin 9.5 g/dL (13.5-17.5); Lymphocytes # (auto) 0.4 10 ^3/uL (0.4-5.4); Lymphocytes % (auto) 5.4 % (10.0-50.0); Mean Corpuscular Hemoglobin 30.7 pg (28.0-32.0); Mean Corpuscular Hgb Conc. 33.8 g/dL (32.0-36.0); Mean Corpuscular Volume 90.8 fL (80.0-100.0); Monocytes # (auto) 0.5 10 ^3/uL (0-1.3); Monocytes % (auto) 7.6 % (0.0-12.0); Neutrophils # (auto) 6.2 10 ^3/uL (1.6-8.6); Neutrophils % (auto) 86.7 % (37.0-80.0); Nucleated Red Blood Cells % 0.1 %; Red Blood Cells 3.11 10^6/uL (4.5-5.90); Red Cell Distribution Width 13.9 % (11.8-14.3); White Blood Cell 7.1 10^3/uL (4.4-10.8)
[2021-11-03] MEDS ORDERED: HYDROcodone-ACET 5/325MG TAB PO PRN (06:15)
[2021-11-03] MEDS ORDERED: PANTOPRAZOLE 40 MG/10 ML VIAL INJ IV PRN (06:15)
[2021-11-03 06:26] LABS: Potassium 4.5 mmol/L (3.5-5.1)
[2021-11-03 06:32] LABS: Albumin 3.4 g/dL (3.4-5.0); BUN/Creatinine Ratio 26.3; Bilirubin, Total 0.3 mg/dL (0.2-1.0); Calcium 8.9 mg/dL (8.5-10.1); Total Protein 6.9 g/dL (6.4-8.2)
[2021-11-03 09:00] VITALS: BP 108/69
[2021-11-03] MEDS: cefTRIAXone 1GM/50ML D5W 50 ML IV SCH (09:55)
[2021-11-03] MEDS: AZITHROMYCIN 500MG/ 250ML 250 ML IV SCH (09:55)
[2021-11-03] MEDS: OXYCODONE W/ ACETAMINOPHEN 5/325MG TABLET PO PRN ×2 (12:51→22:37)
[2021-11-03 13:00] VITALS: BP 158/80
[2021-11-03] MEDS: FUROSEMIDE 40 MG/4 ML VIAL IV SCH ×2 (15:03→18:53)
[2021-11-03 17:16] VITALS: BP 154/75
[2021-11-03 22:00] VITALS: BP 146/73
[2021-11-03] MEDS ORDERED: TEMAZEPAM 15 MG CAP PO ONE (22:45)
[2021-11-04 06:30] VITALS: BP 127/67
[2021-11-04] MEDS: FUROSEMIDE 40 MG/4 ML VIAL IV SCH ×2 (06:51→16:56)
[2021-11-04] MEDS: OXYCODONE W/ ACETAMINOPHEN 5/325MG TABLET PO PRN ×3 (06:56→18:46)
[2021-11-04] MEDS: ALBUTEROL SULF 2.5 MG/0.5ML(0.5%) NEB SOLN NEB SCH ×2 (07:00→13:45)
[2021-11-04] MEDS: IPRATROPIUM BROM 0.5 MG/2.5ML INH SOL NEB SCH ×2 (07:00→13:45)
[2021-11-04] MEDS: cefTRIAXone 1GM/50ML D5W 50 ML IV SCH (08:46)
[2021-11-04] MEDS: AZITHROMYCIN 500MG/ 250ML 250 ML IV SCH (08:46)
[2021-11-04 09:00] VITALS: BP 141/73
[2021-11-04] MEDS ORDERED: CLOPIDOGREL BISULFATE 75 MG TAB PO ONE (10:45)
[2021-11-04] MEDS ORDERED: ASPirin 81 mg TAB PO ONE (10:45)
[2021-11-04 13:00] VITALS: BP 154/88
[2021-11-04] MEDS ORDERED: amLODIPine BESYLATE 5 MG TAB PO ONE ×2 (15:30→15:45)
[2021-11-04] MEDS ORDERED: METOPROLOL SUCCINATE XL 50 MG TAB PO ONE ×2 (15:30→15:45)
[2021-11-04] MEDS ORDERED: LISINOPRIL 20 MG TAB PO ONE (15:45)
[2021-11-04 16:33] VITALS: BP 142/73
[2021-11-04] MEDS: TAMSULOSIN HYDROCHLORIDE 0.4 MG CAP PO SCH (16:56)
[2021-11-04] MEDS: ATORVASTATIN 20 MG TAB PO SCH (21:35)
[2021-11-04 22:00] VITALS: BP 145/74
[2021-11-05] VITALS (8 sets, daily range): BP systolic 116–156; BP diastolic 66–78
[2021-11-05] MEDS: OXYCODONE W/ ACETAMINOPHEN 5/325MG TABLET PO PRN ×4 (04:01→23:19)
[2021-11-05] MEDS: FUROSEMIDE 40 MG/4 ML VIAL IV SCH ×3 (05:12→17:06)
[2021-11-05] MEDS: ASPirin 81 mg TAB PO SCH ×2 (07:58→10:03)
[2021-11-05] MEDS: CLOPIDOGREL BISULFATE 75 MG TAB PO SCH ×2 (07:58→10:03)
[2021-11-05] MEDS: cefTRIAXone 1GM/50ML D5W 50 ML IV SCH (08:56)
[2021-11-05] MEDS: AZITHROMYCIN 500MG/ 250ML 250 ML IV SCH (08:56)
[2021-11-05] MEDS: LISINOPRIL 20 MG TAB PO SCH (08:56)
[2021-11-05] MEDS: amLODIPine BESYLATE 5 MG TAB PO SCH (08:57)
[2021-11-05] MEDS ORDERED: amLODIPine BESYLATE 5 MG TAB PO SCH (10:00)
[2021-11-05] MEDS ORDERED: METOPROLOL SUCCINATE XL 50 MG TAB PO SCH ×2 (10:00)
[2021-11-05 10:06] LABS: INR 1.14 (0.9-1.15); Partial Thromboplastin Time 28.8 sec (23.6-33.0)
[2021-11-05] MEDS ORDERED: MIDAZOLAM HCL 2MG/2ML 2ml VIAL (1mg/ml) ONE (11:49)
[2021-11-05] MEDS ORDERED: SODIUM CHL 0.9% 0 ML ONE (11:49)
[2021-11-05] MEDS ORDERED: fentaNYL CITRATE 100 MCG/2 ML VL ONE (11:49)
[2021-11-05] MEDS ORDERED: ANGIOMAX 250 MG VIAL IV ONE (11:49)
[2021-11-05] MEDS ORDERED: LIDOCAINE 2%HCL (LOCAL ANESTH.) INJ 10ml MDV ONE ×2 (11:50→11:58)
[2021-11-05] MEDS ORDERED: IOHEXOL 350 MG/ML 100ML IJ ONE (12:10)
[2021-11-05] MEDS: TAMSULOSIN HYDROCHLORIDE 0.4 MG CAP PO SCH (17:02)
[2021-11-05] MEDS: ATORVASTATIN 20 MG TAB PO SCH (21:49)
[2021-11-06] MEDS: OXYCODONE W/ ACETAMINOPHEN 5/325MG TABLET PO PRN (05:50)
[2021-11-06] MEDS: FUROSEMIDE 40 MG/4 ML VIAL IV SCH (05:51)
[2021-11-06 09:00] VITALS: BP 127/68
[2021-11-06] MEDS: cefTRIAXone 1GM/50ML D5W 50 ML IV SCH (09:26)
[2021-11-06] MEDS: ASPirin 81 mg TAB PO SCH (09:46)
[2021-11-06] MEDS: AZITHROMYCIN 500MG/ 250ML 250 ML IV SCH (09:46)
[2021-11-06] MEDS: CLOPIDOGREL BISULFATE 75 MG TAB PO SCH (09:46)
[2021-11-06] MEDS: amLODIPine BESYLATE 5 MG TAB PO SCH (09:47)
[2021-11-06] MEDS: LISINOPRIL 20 MG TAB PO SCH (09:47)
[2021-11-06] MEDS ORDERED: AMLO-496 PO (10:05)
[2021-11-06] MEDS ORDERED: FURO1TAB31 PO (10:05)
[2021-11-06] MEDS ORDERED: AZIT500T66 PO (10:05)
[2021-11-06] MEDS ORDERED: POTA10TA51 PO (10:05)
[2021-11-06] MEDS ORDERED: ALBUAER3 IN (10:15)
[2021-11-06 10:33] VITALS: BP 127/68
== END 2021-11-06 11:00 | disposition home or self-care (01) | DRG 286 ==
LOC: ER 10:17 → TELE 17:05 → TELE-WESTW 22:10
PROVIDERS: ADMIT Registered Nurse; ATTEND Family Medicine
PROC: 4A023N8 Measurement of Cardiac Sampling and Pressure, Bilateral, Percutaneous Approach (ICD-10-PCS; principal; 2021-11-05)
PROC: B211YZZ Fluoroscopy of Multiple Coronary Arteries using Other Contrast (ICD-10-PCS; 2021-11-05)
PROC: B215YZZ Fluoroscopy of Left Heart using Other Contrast (ICD-10-PCS; 2021-11-05)
PROC: B213YZZ Fluoroscopy of Multiple Coronary Artery Bypass Grafts using Other Contrast (ICD-10-PCS; 2021-11-05)
PROC: B218YZZ Fluoroscopy of Left Internal Mammary Bypass Graft using Other Contrast (ICD-10-PCS; 2021-11-05)
PROC: B312YZZ Fluoroscopy of Left Subclavian Artery using Other Contrast (ICD-10-PCS; 2021-11-05)
PROC: B41CYZZ Fluoroscopy of Pelvic Arteries using Other Contrast (ICD-10-PCS; 2021-11-05)
DX: I11.0 Hypertensive heart disease with heart failure (principal); J18.9 Pneumonia, unspecified organism; J96.01 Acute respiratory failure with hypoxia; I50.43 Acute on chronic combined systolic (congestive) and diastolic (congestive) heart failure; N17.9 Acute kidney failure, unspecified; D63.8 Anemia in other chronic diseases classified elsewhere; I25.10 Atherosclerotic heart disease of native coronary artery without angina pectoris; I73.9 Peripheral vascular disease, unspecified; E78.00 Pure hypercholesterolemia, unspecified; R79.89 Other specified abnormal findings of blood chemistry; E78.5 Hyperlipidemia, unspecified; Z20.822 Contact with and (suspected) exposure to COVID-19; Z80.0 Family history of malignant neoplasm of digestive organs; Z80.1 Family history of malignant neoplasm of trachea, bronchus and lung; Z82.49 Family history of ischemic heart disease and other diseases of the circulatory system; Z83.3 Family history of diabetes mellitus; Z87.891 Personal history of nicotine dependence; Z95.1 Presence of aortocoronary bypass graft; Z95.5 Presence of coronary angioplasty implant and graft; Z88.5 Allergy status to narcotic agent; Z71.6 Tobacco abuse counseling
CPT/HCPCS: 36415; 36600; 71045; 71275; 75710; 76705; 80053; 80061; 81001; 82728; 82805; 83036; 83605; 83735; 83880; 84484; 85025; 85379; 85610; 85730; 86141; 86850; 86900; 86901; 87040; 93306; 93461; 93970; 94640; 96365; 96367; 96375; 99152; 99153; 99291; C1751; C9113; G0378; J0696; J2001; J2250